=== PATIENT | female | born 1960 | race African-American/Black ===

== ENCOUNTER → 2016-07-16 | Outpatient (CLI) | payer OTHER ==
[~2016-07-16] MED LIST: CALC-67 PO; COU10 PO; FER325 PO; HYD25 PO; TELM40TA2 PO; VIT D3 PO
--- NOTE | 2016-07-16 18:51 | HKNOTE ---
DATE OF SERVICE: Patient comes in for checkup on her left hip wound. She called this morning to say that she had a s mall part of the wound that seemed to be draining. She was told to come on in and see me immediatel y. On physical examination, her temperature is 98.7. Examination of the left hip wound shows that ther e are 2 areas of breakdown of the wound very close to each other near the center of the wound with a bridge of healing skin between them. There is some drainage from both of them. The order of the d rainage is not good. An attempt was made to massage deep drainage, deep fluid through the sinuses, but none was available. The wounds were superficially debrided. An attempt was made to find if there might be some underlyin g stitch causing an abscess. Cultures were obtained from the deep aspects of the wound. The wound edges were pulled together with Steri-Strips and she will be seen again on Wednesday for reevaluation. She is given a prescription for amoxicillin until then. Dictated By: ONDINA ACOSTA/HENOK Conf#: [id number] DID#: [id number]
== END | disposition home or self-care (01) ==
LOC: HKI 14:27
DX: Z47.89 Encounter for other orthopedic aftercare (principal)
CPT/HCPCS: G0463

== ENCOUNTER → 2016-07-21 | Outpatient (CLI) | payer OTHER ==
--- NOTE | 2016-07-21 22:06 | HKNOTE ---
DATE OF SERVICE: 07/21/2016 The patient comes in for repeat wound check. PHYSICAL EXAMINATION: VITAL SIGNS: Temperature 98.6, blood pressure 125/60. The wound looks much better. The 2 small freedman perficial sinuses have now closed over. The cultures taken from her hip at the last visit show positive growth for pseudomonas and Staphyloc occus aureus. The one antibiotic that both had sensitivity is Cipro. New dressings were applied. The patient given a prescription for Cipro 750 mg p.o. q.12h. and she w ill be seen again on for reevaluation. Dictated By: ONDINA ACOSTA/HENOK Conf#: [id number] DID#: [id number]
== END | disposition home or self-care (01) ==
LOC: HKI 13:43
DX: Z48.01 Encounter for change or removal of surgical wound dressing (principal)
CPT/HCPCS: G0463

== ENCOUNTER → 2016-07-23 | Outpatient (CLI) | payer OTHER ==
--- NOTE | 2016-07-23 22:41 | HKNOTE ---
DATE OF SERVICE: The patient comes in for repeat check of her wound. The wound is now healing up nicely. Her temper ature 98.4. The 2 sinuses are now barely visible, nothing could be expressed from the wound. She i s currently on Cipro, which seems to be doing the trick. She will be seen again on Wednesday for reeva luation. Dictated By: ONDINA ACOSTA/HENOK Conf#: [id number] DID#: [id number]
== END | disposition home or self-care (01) ==
LOC: HKI 13:50
DX: Z48.01 Encounter for change or removal of surgical wound dressing (principal)
CPT/HCPCS: G0463

== ENCOUNTER → 2016-07-28 | Outpatient (CLI) | payer OTHER ==
--- NOTE | 2016-07-28 14:37 | RADRPT ---
PROCEDURE: XR Left Hip. CLINICAL INDICATION: Left hip pain. Postop. TECHNIQUE: Two views. Frontal and lateral. COMPARISON: 05/08/2015. 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 This appears satisfactory with no fracture, dislocation or loosening. There is no lytic lesion. A right hip total arthroplasty is noted as seen previously, and appears normal. IMPRESSION: 1. Satisfactory postoperative appearance of both hips. RPTAT: QQ .Derrek Ashton MD, MD Date Time Electronically viewed and signed by .Derrek Ashton MD, MD on 07/28/2016 14:36 .R/
--- NOTE | 2016-07-28 18:38 | HKNOTE ---
DATE OF SERVICE: 07/28/2016 Patient comes in for recheck of her wound. She is still on Coumadin. It is now 6 weeks since her s urgery. PHYSICAL EXAMINATION: The wound is now completely healed. The patient's temperature 98.9. IMAGING: Plain x-rays of her left hip obtained today show a perfect hip replacement. All component s are well attached and well aligned. Patient will see Dr. Schuster today to discuss with him that Coumadin since she has had previous hist ory of pulmonary embolism. antibiotic card. Patient will be seen again in 4-1/2 months' time for reevaluation. She will return sooner if there is a problem. Dictated By: ONDINA ACOSTA/HENOK Conf#: [id number] DID#: [id number]
== END | disposition home or self-care (01) ==
LOC: HKI 13:21
DX: Z47.1 Aftercare following joint replacement surgery (principal); Z96.642 Presence of left artificial hip joint; Z86.711 Personal history of pulmonary embolism; Z79.01 Long term (current) use of anticoagulants
CPT/HCPCS: 73502; G0463